=== PATIENT | female | born 1955 | race Caucasian/White ===

== ENCOUNTER 2018-11-23 10:07 | Emergency (ER) | payer OTHER ==
[~2018-11-23] VITALS: Ht 162.6 cm; Wt 56.7 kg
[2018-11-23] MEDS ORDERED: NORCO 5-325 TA1 EAC1 PO (11:30)
[2018-11-23] MEDS ORDERED: NAPROSYN500 MG PO (11:38)
[2018-11-23 12:00] VITALS: BP 118/72
== END 2018-11-23 12:00 | disposition home or self-care (01) ==
LOC: ER 10:07
DX: S52.572A Other intraarticular fracture of lower end of left radius, initial encounter for closed fracture (principal); J44.9 Chronic obstructive pulmonary disease, unspecified; Z88.0 Allergy status to penicillin; Z88.7 Allergy status to serum and vaccine; W01.0XXA Fall on same level from slipping, tripping and stumbling without subsequent striking against object, initial encounter; Y92.89 Other specified places as the place of occurrence of the external cause; Y93.89 Activity, other specified; Y99.8 Other external cause status